=== PATIENT | male | born 1985 | race Caucasian/White ===

== ENCOUNTER 2016-11-24 11:29 | Emergency (ER) | payer SELFPAY ==
[~2016-11-24 11:29] MED LIST: GLUC500T PO
--- NOTE | 2016-11-24 12:22 | EDDOCDS ---
Nurse's Notes [facility] Name: Raheem Gates Age: 31 yrs Sex: Male : 1985 Arrival Date: 11/24/2016 Time: 11:29 Bed Triage 3 Private MD: NO PRIMARY PHYSICIAN, . Diagnosis: Acute upper respiratory infections of multiple and unspecified sites Presentation: 11/24 11:36 Presenting complaint: Patient states: Nasal and chest congestion x3 days. Adult Sepsis jo3 Screening: The patient does not have new or worsening altered mentation. Patient's respiratory rate is less than 22. Systolic blood pressure is greater than 100. Patient has a qSOFA score of 0- Negative Sepsis Screen. Suicide/Homicide risk assessment- the patient denies having any suicidal and/or homicidal ideations and does not present with any other emotional, behavioral or mental health complaints. Status: Patient is not a tax services intern or dependent. Transition of care: patient was not received from another setting of care. 11:36 Acuity: PRAVEEN Level 4 jo3 11:36 Method Of Arrival: Walkin/Carried/Asstd jo3 Triage Assessment: 11:39 General: Appears in no apparent distress, comfortable, Behavior is appropriate for age, jo3 cooperative, pleasant. HIV screening NA for this visit Offered previously. Neurological: Level of Consciousness is awake, alert, Oriented to person, place, time. Historical: - Allergies: No known drug Allergies; - Home Meds: 1. Tylenol 500mg Oral 2 tabs every 8 hours 2. metformin 500 mg Oral tr24 1 tab once daily - PMHx: aortic stenosis; Hypertension; Kidney stones; Diabetes - NIDDM: controlled; - PSHx: cardiac valve surgery; left elbow reconstruction; Tonsillectomy; - Social history: No barriers to communication noted, The patient speaks fluent Armenian, Speaks appropriately for age, Smoking status: Patient uses tobacco products, light tobacco smoker. - Family history: Not pertinent. - : The pt / caregiver states he / she is on anticoagulants: The pt / caregiver states he / she is not on anticoagulants. Home medication list is obtained from the patient. - Exposure Risk Screening:: None identified. Screenin:20 Screening information is obtained from the patient. Fall risk: No risks identified. ck1 Assistance ADL's: requires no assistance with activities of daily living. Abuse/DV Screen: The patient / caregiver reports he/she is: not in a situation that causes fear, pain or injury. Nutritional screening: No deficits noted. Advance Directives: Currently, there is no health care proxy. home support is adequate. Assessment: 12:21 General: Appears in no apparent distress, comfortable, Behavior is appropriate for age, ck1 cooperative. Pain: Location: generalized Pain currently is 4 out of 10 on a pain scale. Quality of pain is described as aching. Neurological: No deficits noted. Respiratory: Respiratory effort is unlabored, Respiratory pattern is regular, symmetrical. GI: Bowel sounds present X 4 quads. Abd is soft and non tender X 4 quads. Derm: Skin is pink, warm & dry. Vital Signs: 11:30 BP 169 / 105; Pulse 137; Resp 20; Temp 98.9(O); Pulse Ox 99% on R/A; Weight 95.25 kg elp (R); Height 6 ft. 2 in. (187.96 cm) (R); Pain 4/10; 11:30 Body Mass Index 26.96 (95.25 kg, 187.96 cm) [facility] Vitals: 11:30 Log In Time: November 24, 2016 at 11:28. el ED Course: 11:29 Patient visited by Chanel Sevilla PCA. elp 11:29 Patient moved to Waiting elp 11:30 NO PRIMARY PHYSICIAN, . is Private Physician. elp 11:31 Patient visited by Chanel Sevilla PCA. elp 11:31 Patient moved to Pre RCE elp 11:38 Triage Initiated jo3 11:41 Patient visited by Manasa Pemberton RN. jo3 11:46 Patient moved to Triage 3 jo3 11:59 [facility] btw 11:59 Madelyn Escobedo MD is Attending Physician. btw 11:59 Patient visited by Malachi Stafford PA. btw 12:10 [facility] is Referral Physician. btw 12:21 The patient / caregiver is instructed regarding the plan of care and ED course. ck1 12:21 No IV's were initiated during this patient's visit. No procedures done that require ck1 assistance. Order Results: There are currently no results for this order. Outcome: 12:11 Discharge ordered by Provider. btw 12:20 Discharge Assessment: Patient awake, alert and oriented x 3. No cognitive and/or ck1 functional deficits noted. Patient verbalized understanding of disposition instructions. patient administered narcotics - no. The following High Risk Discharge criteria are identified: None. Discharged to home ambulatory. Condition: stable. Discharge instructions given to patient, Instructed on discharge instructions, follow up and referral plans. medication usage, Demonstrated understanding of instructions, medications, Pt was receptive of discharge instructions/ teaching. No special radiology studies were completed. Property :Personal belongings accompany Pt. 12:21 Patient left the ED. ck1 Signatures: Tiara Tovar,RN RN ck1 Manasa PembertonRN RN jo3 Malachi Stafford, JACE PA btw Chanel Sevilla, SUZE SERVER MANAGER elp MTDD
--- NOTE | 2016-11-24 12:22 | EDDOCDS ---
Physician Documentation [facility] Name: Raheem Gates Age: 31 yrs Sex: Male : 1985 Arrival Date: 11/24/2016 Time: 11:29 Bed Triage 3 Private MD: NO PRIMARY PHYSICIAN, . Disposition: 11/24/16 12:11 Discharged to Home/Self Care. Impression: Acute upper respiratory infections of multiple and unspecified sites. - Condition is Stable. - Discharge Instructions: Cool Mist Vaporizers, Upper Respiratory Infection, Adult, Cyvn-cq-Ozmg, Viral Infections, Gapb-Qe-Xnar. - Medication Reconciliation, Local Pharmacy Hours form. - Follow [facility]: [facility]; When: Call to arrange an appointment; Reason: Further diagnostic work-up, Recheck today's complaints, Continuance of care. - Problem is new. - Symptoms are unchanged. Historical: - Allergies: No known drug Allergies; - Home Meds: 1. Tylenol 500mg Oral 2 tabs every 8 hours 2. metformin 500 mg Oral tr24 1 tab once daily - PMHx: aortic stenosis; Hypertension; Kidney stones; Diabetes - NIDDM: controlled; - PSHx: cardiac valve surgery; left elbow reconstruction; Tonsillectomy; - Social history: No barriers to communication noted, The patient speaks fluent Malian, Speaks appropriately for age, Smoking status: Patient uses tobacco products, light tobacco smoker. - Family history: Not pertinent. - : The pt / caregiver states he / she is on anticoagulants: The pt / caregiver states he / she is not on anticoagulants. Home medication list is obtained from the patient. - Exposure Risk Screening:: None identified. Vital Signs: 11/24 11:30 BP 169 / 105; Pulse 137; Resp 20; Temp 98.9(O); Pulse Ox 99% on R/A; Weight 95.25 kg / elp 209.99 lbs (R); Height 6 ft. 2 in. (187.96 cm) (R); Pain 4/10; 11:30 Body Mass Index 26.96 (95.25 kg, 187.96 cm) elp Signatures: Tiara Tovar RN RN ck1 Manasa Pemberton RN RN jo3 Malachi Stafford PA PA btw MTDD
--- NOTE | 2016-11-26 13:22 | EDDOCDS ---
Physician Documentation [facility] Name: Raheem Gates Age: 31 yrs Sex: Male : 1985 Arrival Date: 11/24/2016 Time: 11:29 Bed Triage 3 Private MD: NO PRIMARY PHYSICIAN, . Disposition: 11/24/16 12:11 Discharged to Home/Self Care. Impression: Acute upper respiratory infections of multiple and unspecified sites. - Condition is Stable. - Discharge Instructions: Cool Mist Vaporizers, Upper Respiratory Infection, Adult, Mycb-ni-Fzvp, Viral Infections, Pyno-Zw-Bopi. - Medication Reconciliation, Local Pharmacy Hours form. - Follow up: [facility]; When: Call to arrange an appointment; Reason: Further diagnostic work-up, Recheck today's complaints, Continuance of care. - Problem is new. - Symptoms are unchanged. Historical: - Allergies: No known drug Allergies; - Home Meds: 1. Tylenol 500mg Oral 2 tabs every 8 hours 2. metformin 500 mg Oral tr24 1 tab once daily - PMHx: aortic stenosis; Hypertension; Kidney stones; Diabetes - NIDDM: controlled; - PSHx: cardiac valve surgery; left elbow reconstruction; Tonsillectomy; - Social history: No barriers to communication noted, The patient speaks fluent Japanese, Speaks appropriately for age, Smoking status: Patient uses tobacco products, light tobacco smoker. - Family history: Not pertinent. - : The pt / caregiver states he / she is on anticoagulants: The pt / caregiver states he / she is not on anticoagulants. Home medication list is obtained from the patient. - Exposure Risk Screening:: None identified. Vital Signs: 11/24 11:30 BP 169 / 105; Pulse 137; Resp 20; Temp 98.9(O); Pulse Ox 99% on R/A; Weight 95.25 kg / elp 209.99 lbs (R); Height 6 ft. 2 in. (187.96 cm) (R); Pain 4/10; 11:30 Body Mass Index 26.96 (95.25 kg, 187.96 cm) elp MDM: 12:32 Financial registration complete. mm15 12:32 [facility] Payment Agreement was scanned into [employer] and attached to record. mm15 11/25 10:32 T-Sheet-- Draft Copy was scanned into [employer] and attached to record. gb Signatures: Ophelia Blakely, Reg Reg gb Zee-Tiara Casey,RN RN ck1 Manasa PembertonRN RN jo3 Malachi Stafford PA PA btw Baltazar Martin mm15 The chart was reviewed and I authenticate all verbal orders and agree with the evaluation and treatment provided.Attachments: 11/24 12:32 [facility] Payment Agreement mm15 11/25 10:32 T-Sheet-- Draft Copy gb Chart Complete MTDD
--- NOTE | 2016-11-26 13:22 | EDDOCDS ---
Nurse's Notes [facility] Name: Raheem Gates Age: 31 yrs Sex: Male : 1985 Arrival Date: 11/24/2016 Time: 11:29 Bed Triage 3 Private MD: NO PRIMARY PHYSICIAN, . Diagnosis: Acute upper respiratory infections of multiple and unspecified sites Presentation: 11/24 11:36 Presenting complaint: Patient states: Nasal and chest congestion x3 days. Adult Sepsis jo3 Screening: The patient does not have new or worsening altered mentation. Patient's respiratory rate is less than 22. Systolic blood pressure is greater than 100. Patient has a qSOFA score of 0- Negative Sepsis Screen. Suicide/Homicide risk assessment- the patient denies having any suicidal and/or homicidal ideations and does not present with any other emotional, behavioral or mental health complaints. Status: Patient is not a crane service technician or dependent. Transition of care: patient was not received from another setting of care. 11:36 Acuity: PRAVEEN Level 4 jo3 11:36 Method Of Arrival: Walkin/Carried/Asstd jo3 Triage Assessment: 11:39 General: Appears in no apparent distress, comfortable, Behavior is appropriate for age, jo3 cooperative, pleasant. HIV screening NA for this visit Offered previously. Neurological: Level of Consciousness is awake, alert, Oriented to person, place, time. Historical: - Allergies: No known drug Allergies; - Home Meds: 1. Tylenol 500mg Oral 2 tabs every 8 hours 2. metformin 500 mg Oral tr24 1 tab once daily - PMHx: aortic stenosis; Hypertension; Kidney stones; Diabetes - NIDDM: controlled; - PSHx: cardiac valve surgery; left elbow reconstruction; Tonsillectomy; - Social history: No barriers to communication noted, The patient speaks fluent Nicaraguan, Speaks appropriately for age, Smoking status: Patient uses tobacco products, light tobacco smoker. - Family history: Not pertinent. - : The pt / caregiver states he / she is on anticoagulants: The pt / caregiver states he / she is not on anticoagulants. Home medication list is obtained from the patient. - Exposure Risk Screening:: None identified. Screenin:20 Screening information is obtained from the patient. Fall risk: No risks identified. ck1 Assistance ADL's: requires no assistance with activities of daily living. Abuse/DV Screen: The patient / caregiver reports he/she is: not in a situation that causes fear, pain or injury. Nutritional screening: No deficits noted. Advance Directives: Currently, there is no health care proxy. home support is adequate. Assessment: 12:21 General: Appears in no apparent distress, comfortable, Behavior is appropriate for age, ck1 cooperative. Pain: Location: generalized Pain currently is 4 out of 10 on a pain scale. Quality of pain is described as aching. Neurological: No deficits noted. Respiratory: Respiratory effort is unlabored, Respiratory pattern is regular, symmetrical. GI: Bowel sounds present X 4 quads. Abd is soft and non tender X 4 quads. Derm: Skin is pink, warm & dry. Vital Signs: 11:30 BP 169 / 105; Pulse 137; Resp 20; Temp 98.9(O); Pulse Ox 99% on R/A; Weight 95.25 kg elp (R); Height 6 ft. 2 in. (187.96 cm) (R); Pain 4/10; 11:30 Body Mass Index 26.96 (95.25 kg, 187.96 cm) [facility] Vitals: 11:30 Log In Time: November 24, 2016 at 11:28. elp ED Course: 11:29 Patient visited by Chanel Sevilla PCA. elp 11:29 Patient moved to Waiting elp 11:30 NO PRIMARY PHYSICIAN, . is Private Physician. elp 11:31 Patient visited by Chanel Sevilla PCA. elp 11:31 Patient moved to Pre RCE elp 11:38 Triage Initiated jo3 11:41 Patient visited by Manasa Pemberton RN. jo3 11:46 Patient moved to Triage 3 jo3 11:59 Malachi Stafford PA is PHCP. btw 11:59 Madelyn Escobedo MD is Attending Physician. btw 11:59 Patient visited by Malachi Stafford PA. btw 12:10 [facility] is Referral Physician. btw 12:21 The patient / caregiver is instructed regarding the plan of care and ED course. ck1 12:21 No IV's were initiated during this patient's visit. No procedures done that require ck1 assistance. 12:32 [facility] Payment Agreement was scanned into [employer] and attached to record. mm15 11/25 10:32 T-Sheet-- Draft Copy was scanned into [employer] and attached to record. gb Order Results: There are currently no results for this order. Outcome: 11/24 12:11 Discharge ordered by Provider. btw 12:20 Discharge Assessment: Patient awake, alert and oriented x 3. No cognitive and/or ck1 functional deficits noted. Patient verbalized understanding of disposition instructions. patient administered narcotics - no. The following High Risk Discharge criteria are identified: None. Discharged to home ambulatory. Condition: stable. Discharge instructions given to patient, Instructed on discharge instructions, follow up and referral plans. medication usage, Demonstrated understanding of instructions, medications, Pt was receptive of discharge instructions/ teaching. No special radiology studies were completed. Property :Personal belongings accompany Pt. 12:21 Patient left the ED. ck1 Signatures: Ophelia Blakely, Reg Reg gb Tiara TovarRN RN ck1 Manasa PembertonRN RN jo3 Malachi Stafford PA PA btw Baltazar Martin mm15 Chanel Sevilla, SUZE REINFORCED STEEL PLACING SUPERVISOR elp Chart Complete LES
--- NOTE | 2016-11-26 13:22 | EDDOCDS ---
Physician Documentation [facility] Name: Raheem Gates Age: 31 yrs Sex: Male : 1985 Arrival Date: 11/24/2016 Time: 11:29 Bed Triage 3 Private MD: NO PRIMARY PHYSICIAN, . Disposition: 11/24/16 12:11 Discharged to Home/Self Care. Impression: Acute upper respiratory infections of multiple and unspecified sites. - Condition is Stable. - Discharge Instructions: Cool Mist Vaporizers, Upper Respiratory Infection, Adult, Dspc-dw-[id number], Viral Infections, Witl-Co-Xsmn. - Medication Reconciliation, Local Pharmacy Hours form. - Follow up: [facility]; When: Call to arrange an appointment; Reason: Further diagnostic work-up, Recheck today's complaints, Continuance of care. - Problem is new. - Symptoms are unchanged. Historical: - Allergies: No known drug Allergies; - Home Meds: 1. Tylenol 500mg Oral 2 tabs every 8 hours 2. metformin 500 mg Oral tr24 1 tab once daily - PMHx: aortic stenosis; Hypertension; Kidney stones; Diabetes - NIDDM: controlled; - PSHx: cardiac valve surgery; left elbow reconstruction; Tonsillectomy; - Social history: No barriers to communication noted, The patient speaks fluent South African, Speaks appropriately for age, Smoking status: Patient uses tobacco products, light tobacco smoker. - Family history: Not pertinent. - : The pt / caregiver states he / she is on anticoagulants: The pt / caregiver states he / she is not on anticoagulants. Home medication list is obtained from the patient. - Exposure Risk Screening:: None identified. Vital Signs: 11/24 11:30 BP 169 / 105; Pulse 137; Resp 20; Temp 98.9(O); Pulse Ox 99% on R/A; Weight 95.25 kg / elp 209.99 lbs (R); Height 6 ft. 2 in. (187.96 cm) (R); Pain 4/10; 11:30 Body Mass Index 26.96 (95.25 kg, 187.96 cm) elp MDM: 12:32 Financial registration complete. mm15 12:32 [facility] Payment Agreement was scanned into [employer] and attached to record. mm15 11/25 10:32 T-Sheet-- Draft Copy was scanned into [employer] and attached to record. gb Signatures: Ophelia Blakely, Reg Reg gb Zee-Tiara Casey,RN RN ck1 Manasa PembertonRN RN jo3 Malachi Stafford PA PA btw Baltazar Martin mm15 The chart was reviewed and I authenticate all verbal orders and agree with the evaluation and treatment provided.Attachments: 11/24 12:32 [facility] [place] Agreement mm15 11/25 10:32 T-Sheet-- Draft Copy gb Chart Complete MTDD
== END 2016-11-24 12:21 | disposition home or self-care (01) ==
LOC: M ED 11:29
DX: J00 Acute nasopharyngitis [common cold] (principal); B34.9 Viral infection, unspecified; I35.0 Nonrheumatic aortic (valve) stenosis; I10 Essential (primary) hypertension; E11.9 Type 2 diabetes mellitus without complications; Z87.442 Personal history of urinary calculi; Z79.84 Long term (current) use of oral hypoglycemic drugs; F17.210 Nicotine dependence, cigarettes, uncomplicated

== ENCOUNTER 2018-09-21 10:11 | Emergency (ER) | payer MEDICAID, SELFPAY, OTHER ==
[2018-09-21] MEDS: IPRATROPIUM 0.5MG/ALBUTEROL 2.5MG INH SOL UD 3ML (DUONEB)(J7620) NEB (11:06)
[2018-09-21 11:15] LABS: INFLUENZA A AMPLIFICATION NEGATIVE (NEGATIVE); INFLUENZA B AMPLIFICATION NEGATIVE (NEGATIVE)
== END 2018-09-21 11:36 | disposition home or self-care (01) ==
LOC: M ED 10:11
DX: J20.8 Acute bronchitis due to other specified organisms (principal); E11.9 Type 2 diabetes mellitus without complications; I10 Essential (primary) hypertension; F32.9 Major depressive disorder, single episode, unspecified
CPT/HCPCS: 94640

== ENCOUNTER 2019-07-08 07:34 | Emergency (ER) | payer MEDICAID, OTHER ==
[~2019-07-08] VITALS: Ht 185.4 cm; Wt 90.3 kg
[~2019-07-08 07:34] MED LIST changes: +MUCI600T37 PO; +VENTAER INH
[2019-07-08 08:41] LABS: BASO # 0.1 10^3/uL (0.0-0.2); BASO % 0.8 % (0.0-1.0); EOS # 0.3 10^3/uL (0.0-0.5); EOS % 2.4 % (0.0-3.0); HEMATOCRIT 45.5 % (42.0-52.0); HEMOGLOBIN 15.6 g/dl (13.5-17.5); LYMPH # 3.2 10^3/uL (1.5-5.0); LYMPH % 30.2 % (24.0-44.0); MEAN CORPUSCULAR HGB CONC 34.3 g/dl (32.0-36.5); MEAN CORPUSCULAR VOLUME 96.2 fl (80.0-96.0); MONO # 0.8 10^3/uL (0.0-0.8); MONO % 7.4 % (0.0-5.0); NEUTROPHILS # 6.3 10^3/uL (1.5-8.5); PLATELET COUNT, AUTOMATED 123 10^3/uL (150-450); RED BLOOD COUNT 4.73 10^6/uL (4.30-6.10); WHITE BLOOD COUNT 10.6 10^3/uL (4.0-10.0)
[2019-07-08 08:43] LABS: BLOOD UREA NITROGEN 12 MG/DL (7-18); CALCIUM LEVEL 9.3 MG/DL (8.5-10.1); CARBON DIOXIDE LEVEL 22 MEQ/L (21-32); CHLORIDE LEVEL 107 MEQ/L (98-107); CREATININE FOR GFR 0.78 MG/DL (0.70-1.30); GLOMERULAR FILTRATION RATE > 60.0 (>60); GLUCOSE, FASTING 202 MG/DL (70-100); POTASSIUM SERUM 4.1 MEQ/L (3.5-5.1); SODIUM LEVEL 139 MEQ/L (136-145)
[2019-07-08 09:00] VITALS: BP 139/91
[2019-07-08 09:02] LABS: APPEARANCE, URINE CLEAR (CLEAR); BACTERIA, URINE AUTO NEGATIVE (NEGATIVE); BILIRUBIN, URINE AUTO NEGATIVE (NEGATIVE); BLOOD, URINE BLOOD NEGATIVE (NEGATIVE); COLOR, URINE YELLOW (YELLOW); GLUCOSE, URINE (UA) AUTO 3+ mg/dL (NEGATIVE); KETONE, URINE AUTO TRACE mg/dL (NEGATIVE); LEUKOCYTE ESTERASE, URINE AUTO NEGATIVE (NEGATIVE); MUCUS, URINE SMALL (NEGATIVE); NITRITE, URINE AUTO NEGATIVE (NEGATIVE); PROTEIN, URINE AUTO NEGATIVE (NEGATIVE); RBC, URINE AUTO 1 /HPF (0-3); SPECIFIC GRAVITY URINE AUTO 1.027 (1.002-1.035); SQUAMOUS EPITHELIAL CELL UR AU 0 /HPF (0-6); UROBILINOGEN, URINE AUTO 0.2 mg/dL (0.0-2.0); WBC, URINE AUTO 1 /HPF (0-3)
[2019-07-08 09:14] LABS: HEMOGLOBIN A1c 8.1 %
[2019-07-08] MEDS ORDERED: NAPR-837 PO (09:29)
[2019-07-08] MEDS ORDERED: METF-839 PO (09:29)
== END 2019-07-08 09:51 | disposition home or self-care (01) ==
LOC: M ED 07:34
DX: S39.011A Strain of muscle, fascia and tendon of abdomen, initial encounter (principal); X58.XXXA Exposure to other specified factors, initial encounter; Y92.9 Unspecified place or not applicable; E11.9 Type 2 diabetes mellitus without complications; I35.0 Nonrheumatic aortic (valve) stenosis; Z79.84 Long term (current) use of oral hypoglycemic drugs; Z86.59 Personal history of other mental and behavioral disorders

== ENCOUNTER 2021-05-12 10:07 | Emergency (ER) | payer OTHER ==
[~2021-05-12] VITALS: Ht 188 cm; Wt 80.7 kg
[~2021-05-12 10:07] MED LIST changes: +METF-839 PO; +NAPR-837 PO
[2021-05-12 10:08] VITALS: BP 132/84
== END 2021-05-12 10:36 | disposition left against medical advice (07) ==
LOC: M ED 10:07
DX: Z53.21 Procedure and treatment not carried out due to patient leaving prior to being seen by health care provider (principal)

== ENCOUNTER → 2022-06-14 | Outpatient (REF) | LOC: M LABSMTC 11:06 | PROVIDERS: ATTEND Family Medicine | DX: Z11.52 Encounter for screening for COVID-19 (principal) ==

== ENCOUNTER 2022-07-30 08:48 | Emergency (ER) | payer OTHER ==
[~2022-07-30] VITALS: Ht 188 cm; Wt 86.1 kg
[2022-07-30] MEDS ORDERED: METF-838 PO (08:55)
[2022-07-30] MEDS ORDERED: KETOROLAC 60MG 2ML VIAL IM ONE (10:30)
[2022-07-30] MEDS ORDERED: LIDOCAINE 5% (LIDODERM) PATCH TD ONE (10:30)
[2022-07-30] MEDS ORDERED: NAPR-837 PO (11:25)
[2022-07-30] MEDS ORDERED: ASPE4PAD TOP (11:25)
[2022-07-30] MEDS ORDERED: HYDR-3713 PO (11:25)
[2022-07-30 11:35] VITALS: BP 134/100
[2022-07-30] MEDS ORDERED: **NOTE PATIENT COMMENT** MISC XX ONE (22:30)
== END 2022-07-30 12:05 | disposition home or self-care (01) ==
LOC: M ED 08:48
DX: S62.625A Displaced fracture of middle phalanx of left ring finger, initial encounter for closed fracture (principal); S09.92XA Unspecified injury of nose, initial encounter; S30.0XXA Contusion of lower back and pelvis, initial encounter; Y04.8XXA Assault by other bodily force, initial encounter; Y92.410 Unspecified street and highway as the place of occurrence of the external cause; I70.0 Atherosclerosis of aorta; I10 Essential (primary) hypertension; F17.200 Nicotine dependence, unspecified, uncomplicated
CPT/HCPCS: 72110; 73130; 96372; 99283; J1885

== ENCOUNTER 2024-08-28 15:19 | Emergency (ER) | payer OTHER ==
[~2024-08-28] VITALS: Ht 188 cm; Wt 85.3 kg
[~2024-08-28 15:19] MED LIST changes: +ASPE4PAD TOP; +HYDR-3713 PO; +METF-838 PO
[2024-08-28 16:23] LABS: CK-MB VALUE MASS 2.3 NG/ML (<3.6)
[2024-08-28 16:25] LABS: BLOOD UREA NITROGEN 12 MG/DL (9-23); CALCIUM LEVEL 9.7 MG/DL (8.5-10.1); CARBON DIOXIDE LEVEL 21 MMOL/L (20-31); CHLORIDE LEVEL 110 MMOL/L (98-107); CPK CREATINE PHOSPHOKINASE 72 U/L (46-171); CREATININE FOR GFR 0.79 MG/DL (0.70-1.30); GLOMERULAR FILTRATION RATE > 60.0 (>60); GLUCOSE, FASTING 153 MG/DL (60-100); MB/CK RELATIVE INDEX 3.19 (< OR =4); POTASSIUM SERUM 4.1 MMOL/L (3.5-5.1); SODIUM LEVEL 141 MMOL/L (136-145)
[2024-08-28 16:35] LABS: BASO # 0.1 10^3/uL (0.0-0.2); BASO % 0.7 % (0.0-1.0); EOS # 0.2 10^3/uL (0.0-0.5); HEMATOCRIT 46.5 % (42.0-52.0); HEMOGLOBIN 16.5 g/dl (13.5-17.5); LYMPH # 2.9 10^3/uL (1.5-5.0); LYMPH % 26.5 % (24.0-44.0); MEAN CORPUSCULAR HEMOGLOBIN 33.7 pg (27.0-33.0); MEAN CORPUSCULAR HGB CONC 35.5 g/dl (32.0-36.5); MEAN CORPUSCULAR VOLUME 95.1 fl (80.0-96.0); MONO # 0.7 10^3/uL (0.0-0.8); MONO % 6.5 % (2.0-8.0); NEUTROPHILS # 7.1 10^3/uL (1.5-8.5); NEUTROPHILS % 63.9 % (36.0-66.0); PLATELET COUNT, AUTOMATED 156 10^3/uL (150-450); RED BLOOD COUNT 4.89 10^6/uL (4.30-6.10); WHITE BLOOD COUNT 11.1 10^3/uL (4.0-10.0)
[2024-08-28 17:26] LABS: CK-MB VALUE MASS 2.3 NG/ML (<3.6)
[2024-08-28 17:27] LABS: MB/CK RELATIVE INDEX 3.65 (< OR =4)
[2024-08-28] MEDS: FUROSEMIDE 40MG/4ML VIAL IV ONE (18:10)
[2024-08-28] MEDS: LORazepam 0.5 MG TAB PO ONE (18:10)
[2024-08-28 18:11] LABS: INR 0.96; PARTIAL THROMBOPLASTIN TIME 31.9 SECONDS (24.8-34.2)
[2024-08-28] MEDS: ASPIRIN 81MG CHEW TABLET PO ONE (18:11)
[2024-08-28] MEDS: HEPARIN SOD (PORCINE) 5000UNITS/ML 1ML VIAL/SYRINGE IV ONE (18:12)
[2024-08-28] MEDS: HEPARIN DRIP 25,000 UNITS in IV 1 EA IV SCH (18:22)
[2024-08-28 18:56] VITALS: BP 119/88; TEMP 99.6; O2SAT 96
== END 2024-08-28 18:58 | disposition short-term general hospital (02) ==
LOC: M ED 15:19
DX: I21.4 Non-ST elevation (NSTEMI) myocardial infarction (principal); I44.7 Left bundle-branch block, unspecified; F90.9 Attention-deficit hyperactivity disorder, unspecified type; F17.210 Nicotine dependence, cigarettes, uncomplicated
CPT/HCPCS: 71045; 80048; 82550; 82553; 84484; 85025; 85610; 85730; 93005; 93041; 94760; 96374; 96375; 96376; 99285; J1940

== ENCOUNTER → 2024-09-13 | Outpatient (REF) | payer OTHER ==
[2024-09-13 12:38] LABS: INR 1.61; PROTHROMBIN TIME 19.4 SECONDS (12.5-14.5)
== END ==
LOC: M LABWUC 12:15
PROVIDERS: ATTEND Nurse Practitioner
DX: I50.9 Heart failure, unspecified (principal)

== ENCOUNTER → 2024-09-16 | Outpatient (CLI) | payer OTHER ==
[2024-09-16 11:22] LABS: INR 2.45; PROTHROMBIN TIME 26.6 SECONDS (12.5-14.5)
== END ==
LOC: M WUC 09:22
PROVIDERS: ATTEND Thoracic Surgery (Cardiothoracic Vascular Surgery)
DX: Z79.01 Long term (current) use of anticoagulants (principal)

== ENCOUNTER → 2024-09-23 | Outpatient (REF) | payer OTHER ==
[2024-09-23 12:44] LABS: INR 1.98; PROTHROMBIN TIME 22.7 SECONDS (12.5-14.5)
== END ==
LOC: M LABWUC 12:22
PROVIDERS: ATTEND Nurse Practitioner
DX: Z79.01 Long term (current) use of anticoagulants (principal)

== ENCOUNTER → 2024-09-27 | Outpatient (CLI) | payer OTHER | LOC: M WUC 12:56 | PROVIDERS: ATTEND Pediatrics | DX: I51.7 Cardiomegaly (principal); R07.9 Chest pain, unspecified; Z95.4 Presence of other heart-valve replacement ==

== ENCOUNTER → 2024-10-01 | Outpatient (REF) | payer OTHER ==
[2024-10-01 12:36] LABS: INR 3.51
== END ==
LOC: M LAB REF 12:03
PROVIDERS: ATTEND Pediatrics
DX: Z79.01 Long term (current) use of anticoagulants (principal)

== ENCOUNTER → 2024-10-07 | Outpatient (REF) | payer OTHER ==
[2024-10-07 13:19] LABS: INR 2.43; PROTHROMBIN TIME 26.5 SECONDS (12.5-14.5)
== END ==
LOC: M LAB REF 12:54
PROVIDERS: ATTEND Pediatrics
DX: Z79.01 Long term (current) use of anticoagulants (principal)

== ENCOUNTER → 2024-10-14 | Outpatient (REF) | payer OTHER ==
[2024-10-14 13:06] LABS: INR 4.5; PROTHROMBIN TIME 42.2 SECONDS (12.5-14.5)
== END ==
LOC: M LAB REF 12:38
PROVIDERS: ATTEND Pediatrics
DX: Z79.01 Long term (current) use of anticoagulants (principal)

== ENCOUNTER → 2024-10-21 | Outpatient (REF) | payer OTHER ==
[2024-10-21 12:45] LABS: INR 2.54; PROTHROMBIN TIME 27.4 SECONDS (12.5-14.5)
== END ==
LOC: M LAB REF 12:26
PROVIDERS: ATTEND Pediatrics
DX: Z79.01 Long term (current) use of anticoagulants (principal)

== ENCOUNTER → 2024-10-30 | Outpatient (REF) | payer OTHER ==
[2024-10-30 13:19] LABS: INR 2.81; PROTHROMBIN TIME 29.5 SECONDS (12.5-14.5)
== END ==
LOC: M LAB REF 12:16
PROVIDERS: ATTEND Pediatrics
DX: Z79.01 Long term (current) use of anticoagulants (principal)

== ENCOUNTER → 2024-11-06 | Outpatient (REF) | payer OTHER ==
[2024-11-06 13:46] LABS: INR 2.77; PROTHROMBIN TIME 29.2 SECONDS (12.5-14.5)
[2024-11-06 14:03] LABS: CREATININE, URINE 192.1 MG/DL
[2024-11-06 14:05] LABS: THYROID STIMULATING HORMONE 1.439 uIU/ML (0.55-4.78)
[2024-11-06 15:19] LABS: ALBUMIN 3.9 G/DL (3.2-5.2); ALKALINE PHOSPHATASE 93 U/L (40-129); ALT/SGPT 24 U/L (7.0-40); AST/SGOT 18 U/L (<34); BILIRUBIN,DIRECT 0.1 MG/DL (<0.4); BILIRUBIN,TOTAL 0.6 MG/DL (0.3-1.2); BLOOD UREA NITROGEN 13 MG/DL (9-23); CALCIUM LEVEL 9.1 MG/DL (8.5-10.1); CARBON DIOXIDE LEVEL 26 MMOL/L (20-31); CHLORIDE LEVEL 103 MMOL/L (98-107); CHOLESTEROL LEVEL 279 MG/DL (<200); CHOLESTEROL RISK RATIO 5.91 (<5); CREATININE FOR GFR 0.58 MG/DL (0.70-1.30); GLOMERULAR FILTRATION RATE > 60.0 (>60); GLUCOSE, FASTING 226 MG/DL (60-100); HDL CHOLESTEROL 47.2 MG/DL (>40); NON-HDL-C 231.8 MG/DL; POTASSIUM SERUM 4.7 MMOL/L (3.5-5.1); SODIUM LEVEL 136 MMOL/L (136-145); TOTAL PROTEIN 7.1 G/DL (5.7-8.2); TRIGLYCERIDES LEVEL 224 MG/DL (<150)
[2024-11-06 15:35] LABS: HEMOGLOBIN A1c 8.7 % (4.0-6.0)
== END ==
LOC: M LAB REF 13:06
PROVIDERS: ATTEND Pediatrics
DX: I10 Essential (primary) hypertension (principal); E78.5 Hyperlipidemia, unspecified; Z79.01 Long term (current) use of anticoagulants; F10.10 Alcohol abuse, uncomplicated; E88.819 Insulin resistance, unspecified

== ENCOUNTER → 2024-11-20 | Outpatient (REF) | payer OTHER ==
[2024-11-20 13:37] LABS: INR 4.79; PROTHROMBIN TIME 44.2 SECONDS (12.5-14.5)
== END ==
LOC: M LAB REF 13:01
PROVIDERS: ATTEND Pediatrics
DX: Z79.01 Long term (current) use of anticoagulants (principal)

== ENCOUNTER → 2024-11-28 | Outpatient (REF) | payer OTHER ==
[2024-11-28 12:52] LABS: INR 2.61; PROTHROMBIN TIME 27.9 SECONDS (12.5-14.5)
== END ==
LOC: M LAB REF 12:35
PROVIDERS: ATTEND Pediatrics
DX: Z79.01 Long term (current) use of anticoagulants (principal)

== ENCOUNTER → 2024-12-11 | Outpatient (REF) | payer OTHER ==
[2024-12-11 13:01] LABS: INR 1.5; PROTHROMBIN TIME 18.3 SECONDS (12.5-14.5)
== END ==
LOC: M LAB REF 12:42
PROVIDERS: ATTEND Pediatrics
DX: Z79.01 Long term (current) use of anticoagulants (principal)

== ENCOUNTER → 2024-12-16 | Outpatient (REF) | payer OTHER ==
[2024-12-16 12:11] LABS: INR 4.21; PROTHROMBIN TIME 40.1 SECONDS (12.5-14.5)
== END ==
LOC: M LAB REF 11:52
PROVIDERS: ATTEND Pediatrics
DX: Z79.01 Long term (current) use of anticoagulants (principal)

== ENCOUNTER → 2024-12-24 | Outpatient (REF) | payer OTHER ==
[2024-12-24 12:30] LABS: INR 2.03; PROTHROMBIN TIME 23.1 SECONDS (12.5-14.5)
== END ==
LOC: M LAB REF 12:11
PROVIDERS: ATTEND Pediatrics
DX: Z79.01 Long term (current) use of anticoagulants (principal)

== ENCOUNTER → 2025-01-03 | Outpatient (REF) | payer OTHER ==
[2025-01-03 15:10] LABS: INR 3.91
== END ==
LOC: M LAB REF 14:54
PROVIDERS: ATTEND Pediatrics
DX: Z79.01 Long term (current) use of anticoagulants (principal)

== ENCOUNTER → 2025-01-17 | Outpatient (REF) | payer OTHER ==
[2025-01-17 14:34] LABS: INR 3.61; PROTHROMBIN TIME 35.7 SECONDS (12.5-14.5)
== END ==
LOC: M LAB REF 14:14
PROVIDERS: ATTEND Pediatrics
DX: Z79.01 Long term (current) use of anticoagulants (principal)

== ENCOUNTER → 2025-01-29 | Outpatient (CLI) | payer OTHER ==
[2025-01-29 12:01] LABS: PROTHROMBIN TIME 57.3 SECONDS (12.5-14.5)
[2025-01-29 12:33] LABS: INR 6.75
[2025-01-29 12:56] LABS: ALKALINE PHOSPHATASE 104 U/L (40-129); ALT/SGPT 46 U/L (7.0-40); AST/SGOT 43 U/L (<34); BILIRUBIN,TOTAL 0.6 MG/DL (0.3-1.2); BLOOD UREA NITROGEN 21 MG/DL (9-23); CALCIUM LEVEL 9.3 MG/DL (8.5-10.1); CARBON DIOXIDE LEVEL 24 MMOL/L (20-31); CHLORIDE LEVEL 109 MMOL/L (98-107); CHOLESTEROL LEVEL 174 MG/DL (<200); CHOLESTEROL RISK RATIO 2.93 (<5); CREATININE FOR GFR 0.74 MG/DL (0.70-1.30); GLOMERULAR FILTRATION RATE > 90.0 (>60); GLUCOSE, FASTING 169 MG/DL (60-100); HDL CHOLESTEROL 59.3 MG/DL (>40); LDL CHOLESTEROL 90.5 MG/DL (<100); NON-HDL-C 114.7 MG/DL; POTASSIUM SERUM 4.9 MMOL/L (3.5-5.1); SODIUM LEVEL 139 MMOL/L (136-145); TOTAL PROTEIN 6.9 G/DL (5.7-8.2); TRIGLYCERIDES LEVEL 121 MG/DL (<150)
== END ==
LOC: M WUC 09:38
PROVIDERS: ATTEND Internal Medicine Cardiovascular Disease
DX: Z51.81 Encounter for therapeutic drug level monitoring (principal); Z95.2 Presence of prosthetic heart valve; Z79.01 Long term (current) use of anticoagulants; E78.00 Pure hypercholesterolemia, unspecified

== ENCOUNTER → 2025-02-05 | Outpatient (REF) | payer OTHER ==
[2025-02-05 16:56] LABS: INR 3.05; PROTHROMBIN TIME 31.4 SECONDS (12.5-14.5)
== END ==
LOC: M LAB REF 16:33
PROVIDERS: ATTEND Pediatrics
DX: Z79.01 Long term (current) use of anticoagulants (principal)

== ENCOUNTER 2025-02-07 20:21 | Emergency (ER) | payer OTHER ==
[~2025-02-07] VITALS: Ht 188 cm; Wt 88.0 kg
[2025-02-07 20:24] VITALS: BP 135/81; TEMP 99; O2SAT 97
[2025-02-08] MEDS ORDERED: METO37.5 PO (15:23)
[2025-02-08] MEDS ORDERED: FARX1TAB3 PO (15:23)
[2025-02-08] MEDS ORDERED: WARF-22 PO (15:23)
[2025-02-08] MEDS ORDERED: ATOR40TA75 PO (15:23)
[2025-02-08] MEDS ORDERED: LISI20TA33 PO (15:23)
== END 2025-02-07 23:28 | disposition left against medical advice (07) ==
LOC: M ED 20:21
DX: Z53.21 Procedure and treatment not carried out due to patient leaving prior to being seen by health care provider (principal)

== ENCOUNTER 2025-02-08 15:02 | Emergency (ER) | payer OTHER ==
[~2025-02-08] VITALS: Ht 182.9 cm; Wt 87.7 kg
[2025-02-08 15:04] VITALS: TEMP 97.3
[2025-02-08] MEDS ORDERED: METO37.5 PO (15:23)
[2025-02-08] MEDS ORDERED: LISI20TA33 PO (15:23)
[2025-02-08] MEDS ORDERED: WARF-22 PO (15:23)
[2025-02-08] MEDS ORDERED: ATOR40TA75 PO (15:23)
[2025-02-08] MEDS ORDERED: FARX1TAB3 PO (15:23)
[2025-02-08 15:51] LABS: BASO # 0.1 10^3/uL (0.0-0.2); BASO % 0.5 % (0.0-1.0); EOS # 0.2 10^3/uL (0.0-0.5); EOS % 1.9 % (0.0-3.0); HEMATOCRIT 43.8 % (42.0-52.0); HEMOGLOBIN 15.4 g/dl (13.5-17.5); LYMPH % 34.7 % (24.0-44.0); MEAN CORPUSCULAR HEMOGLOBIN 32.8 pg (27.0-33.0); MEAN CORPUSCULAR HGB CONC 35.2 g/dl (32.0-36.5); MEAN CORPUSCULAR VOLUME 93.2 fl (80.0-96.0); MONO # 0.6 10^3/uL (0.0-0.8); MONO % 5.4 % (2.0-8.0); NEUTROPHILS # 6.5 10^3/uL (1.5-8.5); NEUTROPHILS % 57.1 % (36.0-66.0); PLATELET COUNT, AUTOMATED 191 10^3/uL (150-450); WHITE BLOOD COUNT 11.4 10^3/uL (4.0-10.0)
[2025-02-08 15:59] LABS: ERYTHROCYTE SEDIMENTATION RATE 7 mm/hr (0-15)
[2025-02-08 16:04] LABS: INR 3.49; PARTIAL THROMBOPLASTIN TIME 50.2 SECONDS (24.8-34.2); PROTHROMBIN TIME 34.8 SECONDS (12.5-14.5)
[2025-02-08 16:20] LABS: BLOOD UREA NITROGEN 14 MG/DL (9-23); C REACTIVE PROTEIN QUANTITATIV < 0.50 MG/DL (<1.0); CALCIUM LEVEL 8.9 MG/DL (8.5-10.1); CARBON DIOXIDE LEVEL 24 MMOL/L (20-31); CHLORIDE LEVEL 109 MMOL/L (98-107); CREATININE FOR GFR 0.72 MG/DL (0.70-1.30); GLOMERULAR FILTRATION RATE > 90.0 (>60); GLUCOSE, FASTING 135 MG/DL (60-100); POTASSIUM SERUM 4.1 MMOL/L (3.5-5.1); SODIUM LEVEL 140 MMOL/L (136-145)
[2025-02-08 17:25] VITALS: BP 124/82; O2SAT 98
== END 2025-02-08 17:27 | disposition home or self-care (01) ==
LOC: M ED 15:02
DX: M25.022 Hemarthrosis, left elbow (principal); Z79.01 Long term (current) use of anticoagulants; Z79.84 Long term (current) use of oral hypoglycemic drugs; Z79.899 Other long term (current) drug therapy

== ENCOUNTER → 2025-02-14 | Outpatient (REF) | payer OTHER ==
[~2025-02-14] MED LIST changes: +ATOR40TA75 PO; +FARX1TAB3 PO; +LISI20TA33 PO; +METO37.5 PO; +WARF-22 PO
[2025-02-14 17:11] LABS: PROTHROMBIN TIME 50.3 SECONDS (12.5-14.5)
[2025-02-14 17:41] LABS: INR 5.68
== END ==
LOC: M LAB REF 16:38
PROVIDERS: ATTEND Pediatrics
DX: Z79.01 Long term (current) use of anticoagulants (principal)

== ENCOUNTER → 2025-02-17 | Outpatient (REF) | payer OTHER ==
[2025-02-17 12:30] LABS: INR 1.15
== END ==
LOC: M LAB REF 12:07
PROVIDERS: ATTEND Pediatrics
DX: Z79.01 Long term (current) use of anticoagulants (principal)

== ENCOUNTER → 2025-02-26 | Outpatient (REF) | payer OTHER ==
[2025-02-26 14:27] LABS: INR 2.44; PROTHROMBIN TIME 26.5 SECONDS (12.5-14.5)
== END ==
LOC: M LAB REF 14:10
PROVIDERS: ATTEND Pediatrics
DX: Z79.01 Long term (current) use of anticoagulants (principal)

== ENCOUNTER → 2025-03-12 | Outpatient (REF) | payer OTHER ==
[2025-03-12 12:28] LABS: INR 2.76; PROTHROMBIN TIME 29.1 SECONDS (12.5-14.5)
== END ==
LOC: M LAB REF 12:11
PROVIDERS: ATTEND Pediatrics
DX: Z79.01 Long term (current) use of anticoagulants (principal)

== ENCOUNTER → 2025-05-07 | Outpatient (REF) | payer OTHER ==
[2025-05-07 14:29] LABS: INR 4.06
== END ==
LOC: M LAB REF 14:06
PROVIDERS: ATTEND Pediatrics
DX: Z79.01 Long term (current) use of anticoagulants (principal)

== ENCOUNTER → 2025-05-19 | Outpatient (REF) | payer OTHER ==
[2025-05-19 12:05] LABS: INR 1.81
== END ==
LOC: M LAB REF 11:32
PROVIDERS: ATTEND Pediatrics
DX: Z79.01 Long term (current) use of anticoagulants (principal)

== ENCOUNTER → 2025-05-28 | Outpatient (REF) | payer OTHER ==
[2025-05-28 12:57] LABS: INR 5.45
== END ==
LOC: M LAB REF 12:00
PROVIDERS: ATTEND Pediatrics
DX: Z79.01 Long term (current) use of anticoagulants (principal)

== ENCOUNTER → 2025-06-04 | Outpatient (REF) | payer OTHER ==
[2025-06-04 12:07] LABS: INR 2.84
== END ==
LOC: M LAB REF 11:44
PROVIDERS: ATTEND Pediatrics
DX: Z79.01 Long term (current) use of anticoagulants (principal)

== ENCOUNTER → 2025-06-18 | Outpatient (REF) | payer OTHER ==
[2025-06-18 14:21] LABS: INR 1.89
== END ==
LOC: M LAB REF 14:02
PROVIDERS: ATTEND Pediatrics
DX: Z79.01 Long term (current) use of anticoagulants (principal)

== ENCOUNTER → 2025-07-01 | Outpatient (REF) | payer OTHER ==
[2025-07-01 12:41] LABS: INR 3.4
== END ==
LOC: M LAB REF 12:14
PROVIDERS: ATTEND Pediatrics
DX: Z79.01 Long term (current) use of anticoagulants (principal)

== ENCOUNTER → 2025-07-18 | Outpatient (REF) | payer OTHER ==
[2025-07-18 14:36] LABS: INR 4.22
== END ==
LOC: M LAB REF 14:18
PROVIDERS: ATTEND Pediatrics
DX: Z79.01 Long term (current) use of anticoagulants (principal)

== ENCOUNTER → 2025-07-31 | Outpatient (REF) | payer OTHER ==
[2025-07-31 14:51] LABS: INR 2.15
== END ==
LOC: M LAB REF 14:27
PROVIDERS: ATTEND Pediatrics
DX: Z79.01 Long term (current) use of anticoagulants (principal)

== ENCOUNTER → 2025-08-12 | Outpatient (REF) | payer OTHER ==
[2025-08-12 14:35] LABS: INR 4.17
== END ==
LOC: M LAB REF 14:16
PROVIDERS: ATTEND Pediatrics
DX: Z51.81 Encounter for therapeutic drug level monitoring (principal); Z79.01 Long term (current) use of anticoagulants

== ENCOUNTER → 2025-08-28 | Outpatient (REF) | payer OTHER ==
[2025-08-28 16:37] LABS: INR 2.68
== END ==
LOC: M LAB REF 16:11
PROVIDERS: ATTEND Pediatrics
DX: Z79.01 Long term (current) use of anticoagulants (principal)

== ENCOUNTER → 2025-09-01 | Outpatient (CLI) | payer OTHER ==
[2025-09-01 17:09] LABS: ALT/SGPT 51.0 U/L (7.0-40); AST/SGOT 44.0 U/L (<34); CALCIUM LEVEL 9.6 MG/DL (8.5-10.1); CARBON DIOXIDE LEVEL 22.0 MMOL/L (20-31); CHLORIDE LEVEL 106.0 MMOL/L (98-107); CREATININE FOR GFR 1.36 MG/DL (0.70-1.30); GLOMERULAR FILTRATION RATE 67.9 (>60); POTASSIUM SERUM 4.9 MMOL/L (3.5-5.1); SODIUM LEVEL 138.0 MMOL/L (136-145)
[2025-09-01 17:17] LABS: ESTIMATED AVERAGE GLUCOSE 154.0 MG/DL (60-110)
== END ==
LOC: M LAB 15:35 → M RAD 15:35
PROVIDERS: ATTEND Pediatrics
DX: Z95.2 Presence of prosthetic heart valve (principal); I10 Essential (primary) hypertension; E11.69 Type 2 diabetes mellitus with other specified complication; F10.10 Alcohol abuse, uncomplicated; R09.02 Hypoxemia

== ENCOUNTER → 2025-09-10 | Outpatient (REF) | payer OTHER ==
[2025-09-10 14:01] LABS: CREATININE, URINE 72.9 MG/DL; MALB URINE SIEMENS 4.0 MG/L; MAU/CREAT RATIO 5.4 MCG/MG (0.0-30.0)
[2025-09-10 14:05] LABS: BASO # 0.1 10^3/uL (0.0-0.2); BASO % 1.1 % (0.0-1.0); EOS # 0.3 10^3/uL (0.0-0.5); EOS % 2.5 % (0.0-3.0); LYMPH # 3.9 10^3/uL (1.5-5.0); LYMPH % 33.1 % (24.0-44.0); MONO # 0.8 10^3/uL (0.0-0.8); MONO % 6.9 % (2.0-8.0); NEUTROPHILS # 6.6 10^3/uL (1.5-8.5); NEUTROPHILS % 56.0 % (36.0-66.0); PLATELET COUNT, AUTOMATED 195 10^3/uL (150-450)
[2025-09-10 14:28] LABS: INR 1.49
[2025-09-10 14:36] LABS: CALCIUM LEVEL 9.0 MG/DL (8.5-10.1); CARBON DIOXIDE LEVEL 21 MMOL/L (20-31); CHLORIDE LEVEL 109 MMOL/L (98-107); CREATININE FOR GFR 0.85 MG/DL (0.70-1.30); GLOMERULAR FILTRATION RATE > 90.0 (>60); POTASSIUM SERUM 4.8 MMOL/L (3.5-5.1); SODIUM LEVEL 138 MMOL/L (136-145)
== END ==
LOC: M LAB REF 12:18
PROVIDERS: ATTEND Pediatrics
DX: E11.69 Type 2 diabetes mellitus with other specified complication (principal); N28.9 Disorder of kidney and ureter, unspecified; Z79.01 Long term (current) use of anticoagulants

== ENCOUNTER → 2025-09-29 | Outpatient (CLI) | payer OTHER ==
[2025-09-29 12:44] LABS: BASO # 0.1 10^3/uL (0.0-0.2); BASO % 0.6 % (0.0-1.0); EOS # 0.3 10^3/uL (0.0-0.5); EOS % 2.4 % (0.0-3.0); LYMPH # 3.8 10^3/uL (1.5-5.0); LYMPH % 26.8 % (24.0-44.0); MONO # 0.9 10^3/uL (0.0-0.8); MONO % 6.3 % (2.0-8.0); NEUTROPHILS # 9.0 10^3/uL (1.5-8.5); NEUTROPHILS % 63.4 % (36.0-66.0); PLATELET COUNT, AUTOMATED 189 10^3/uL (150-450)
[2025-09-29 13:16] LABS: ALT/SGPT 61 U/L (7.0-40); AST/SGOT 49 U/L (<34); CALCIUM LEVEL 10.4 MG/DL (8.5-10.1); CARBON DIOXIDE LEVEL 23 MMOL/L (20-31); CHLORIDE LEVEL 105 MMOL/L (98-107); CREATININE FOR GFR 0.90 MG/DL (0.70-1.30); GLOMERULAR FILTRATION RATE > 90.0 (>60); POTASSIUM SERUM 4.4 MMOL/L (3.5-5.1); SODIUM LEVEL 140 MMOL/L (136-145)
[2025-09-29 13:17] LABS: INR 2.55
[2025-09-29 13:42] LABS: ESTIMATED AVERAGE GLUCOSE 169.0 MG/DL (60-110)
== END ==
LOC: M LAB 11:48
PROVIDERS: ATTEND Pediatrics
DX: N28.9 Disorder of kidney and ureter, unspecified (principal); Z79.01 Long term (current) use of anticoagulants; E11.69 Type 2 diabetes mellitus with other specified complication; I10 Essential (primary) hypertension; Z95.2 Presence of prosthetic heart valve; F10.10 Alcohol abuse, uncomplicated

== ENCOUNTER → 2025-10-13 | Outpatient (REF) | payer OTHER ==
[2025-10-13 14:56] LABS: INR 2.19
== END ==
LOC: M LAB REF 14:05
PROVIDERS: ATTEND Pediatrics
DX: Z79.01 Long term (current) use of anticoagulants (principal)

== ENCOUNTER → 2025-10-22 | Outpatient (REF) | payer OTHER ==
[2025-10-22 14:50] LABS: INR 3.14
== END ==
LOC: M LAB REF 14:16
PROVIDERS: ATTEND Pediatrics
DX: Z79.01 Long term (current) use of anticoagulants (principal)